=== PATIENT | female | born 1990 | race Caucasian/White ===

== ENCOUNTER 2016-08-09 07:19 | Emergency (ER) | payer SELFPAY ==
[2016-08-09 07:53] VITALS: BP 133/95
--- NOTE | 2016-08-09 08:33 | UC ---
Abdominal Pain Female HPI - HPI Summary HPI Summary: PT WITH KNOWN HEPATITIS C FOLLOWED BY GERARDO COMES IN C/O INTERMITTENT EPISODES OF ABDOMINAL PAIN AND BACK PAIN. PAIN FEELS WORSE IN LUQ. NO FEVER. HAS HAD SOME LOOSE STOOLS AND NAUSEA BUT IS RECOVERING FROM A STOMACH BUG WELL. PT REPORTS WHEN THE PAIN FLARES SHE IS EXCESSIVELY FATIGUED AND IS LOOKING TO BE TREATED FOR HER HEP C AND REQUESTING A REFERRAL TO GI OUTSIDE OF [place]. - History of Current Complaint Chief Complaint: UCBackPain Stated Complaint: ABD/LOWER BACK PAIN Time Seen by Provider: 08/09/16 08:17 Hx Obtained From: Patient Hx Last Menstrual Period: 08/06/16 Onset/Duration: Gradual Onset, Lasting Days, Still Present Timing: Intermittent Episodes Lasting: Severity Initially: Moderate Severity Currently: Moderate Pain Intensity: 7 Pain Scale Used: 0-10 Numeric Location: Discrete At: RUQ, Discrete At: LUQ Radiates: Yes Radiates to: Back Character: Cramping, Sharp Aggravating Factor(s): Nothing Alleviating Factor(s): Nothing Associated Signs and Symptoms: Positive: Back Pain, Nausea. Negative: Fever, Constipation, Blood in Stool, Urinary Symptoms, Vomiting Allergies/Adverse Reactions: Allergies Allergy/AdvReac Type Severity Reaction Status Date / Time No Known Allergies Allergy Verified 11/05/13 13:42 Home Medications: Home Medications NK [No Home Medications Reported] 08/09/16 [History Confirmed 08/09/16] PMH/Surg Hx/FS Hx/Imm Hx - Additional Past Medical History Additional PMH: HEP C (FORMER IV DRUG USER) - Surgical History Surgical History: None - Family History Known Family History: Positive: Diabetes Family History: BREAST CANCER - MOM - Social History Alcohol Use: Rare Substance Use Type: Marijuana Substance Use Comment - Amount & Last Used: 5 days ago Smoking Status (MU): Light Every Day Tobacco Smoker Review of Systems Constitutional: Negative Respiratory: Negative Cardiovascular: Negative Gastrointestinal: Abdominal Pain, Diarrhea, Other - NAUSEA Genitourinary: Negative All Other Systems Reviewed And Are Negative: Yes Physical Exam Triage Information Reviewed: Yes Appearance: Well-Appearing, No Pain Distress, Well-Nourished Vital Signs: Initial Vital Signs Temp 98.6 F 08/09/16 07:44 Pulse 64 08/09/16 07:44 Resp 18 08/09/16 07:44 BP 133/95 08/09/16 07:44 Pulse Ox 100 08/09/16 07:44 Vital Signs Reviewed: Yes Eyes: Positive: Conjunctiva Clear ENT: Positive: Hearing grossly normal Neck: Positive: Supple, Nontender, No Lymphadenopathy Respiratory Exam: Normal Cardiovascular Exam: Normal Abdomen Description: Positive: Soft, Other: - TTP RUQ>LUQ. NO REBOUND, RIGIDITY OR GUARDING. Negative: CVA Tenderness (R), CVA Tenderness (L), Distended, Guarding Musculoskeletal: Positive: No Edema Neurological: Positive: Alert Psychological: Positive: Age Appropriate Behavior Skin: Negative: rashes Abd Pain Female Course/Dx - Course Course Of Treatment: PT SIMPLY LOOKING FOR A GI REFERRAL - Differential Dx/Diagnosis Provider Diagnoses: ABDOMINAL PAIN IN SETTING OF KNOWN HEP C Discharge - Discharge Plan Condition: Stable Disposition: HOME Patient Education Materials: Abdominal Pain (ED) Referrals: [facility],Carlito Matute [Primary Care Provider] - If Needed Antwon Gandhi MD [Medical Doctor] - 1 Week Additional Instructions: CALL GI FOR AN APPT TO EVALUATE YOUR ABDOMINAL PAIN. MAY BE DUE TO MORE THAN JUST HEP C. CONSIDER GASTRITIS, REFLUX...
== END 2016-08-09 08:40 | disposition home or self-care (01) ==
LOC: UCEAST 07:19
DX: R10.11 Right upper quadrant pain (principal); R10.12 Left upper quadrant pain; B19.20 Unspecified viral hepatitis C without hepatic coma; F17.210 Nicotine dependence, cigarettes, uncomplicated
CPT/HCPCS: 99212; G0463

== ENCOUNTER 2019-05-24 03:01 | Emergency (ER) | payer OTHER ==
--- NOTE | 2019-05-24 03:33 | ED ---
Substance Abuse/Use - HPI Summary HPI Summary: Patient is a 28 y/o F presenting to the ED via EMS for a chief complaint of overdose. Patient notes using IV heroin for the first time since being out of a 30 day rehab treatment in March 2019. Patient was administered Narcan nasally by her mother. Currently, patient complains of nausea and dizziness. She states she was clean from heroin use until 05/23/19. Patient believes this relapse is due to depression and recent stress. Patient goes to Narcotics Anonymous meetings, but states she has difficulty going to meetings because they are far from her house. She is due to go to another outpatient rehabilitation facility in 5 days. Patient is 16 weeks and is in her first trimester of . This is her first and she reports no complications. She has an [facility] appointment on 05/29/19. - History Of Current Complaint Chief Complaint: EDOverdose Stated Complaint: OVERDOSE PER EMS Hx Obtained From: Patient Hx Last Menstrual Period: 08/06/16 ?: Yes - 16 weeks Ingestion History: Type/Name Of Drug - Heroin Overdose Characteristics: IV Timing Of Abuse: Binge Use Severity Initially: Severe Severity Currently: Moderate Character: Depressed Aggravating Factor(s): Recent Stress Alleviating Factor(s): Other - Rehab Associated Signs And Symptoms: Nausea, Intentional Ingestion, Other: - Positive dizziness Related Hx: Recent Stressors, Prior Drug Abuse Counseling/Admission - Allergies/Home Medications Allergies/Adverse Reactions: Allergies Allergy/AdvReac Type Severity Reaction Status Date / Time No Known Allergies Allergy Verified 05/24/19 03:16 Home Medications: Home Medications Buspirone HCl 7.5 mg PO BID 05/24/19 [History Confirmed 05/24/19] Pnv No.95/Ferrous Fum/Folic AC [ Vitamin & Minera 28-0.8 mg] 1 tab PO DAILY 05/24/19 [History Confirmed 05/24/19] Sertraline* [Zoloft*] 25 mg PO DAILY 05/24/19 [History Confirmed 05/24/19] PMH/Surg Hx/FS Hx/Imm Hx Previously Healthy: Yes Endocrine/Hematology History: Denies: Hx Diabetes Cardiovascular History: Denies: Hx Hypercholesterolemia, Hx Hypertension Sensory History: Denies: Hx Legally Blind, Hx Deafness Opthamlomology History: Denies: Hx Legally Blind EENT History: Denies: Hx Deafness Psychiatric History: Reports: Hx Inpatient Treatment, Hx Community Mental Health Tx, Hx Substance Abuse - Heroin - Surgical History Surgical History: None Surgery Procedure, Year, and Place: None Infectious Disease History: Yes Infectious Disease History: Reports: History Other Infectious Disease - Hep C Denies: Traveled Outside the [place] in Last 30 Days - Family History Known Family History: Positive: Diabetes, Other - Breast cancer Family History: BREAST CANCER - MOM - Social History Occupation: Unemployed Lives: With Family Alcohol Use: Rare Hx Substance Use: Yes Substance Use Type: Reports: Heroin Substance Use Comment - Amount & Last Used: Last on 05/23/19 Hx Tobacco Use: Yes Smoking Status (MU): Light Every Day Tobacco Smoker Review of Systems Positive: Nausea Neurological: Other - Positive dizziness All Other Systems Reviewed And Are Negative: Yes Physical Exam - Summary Physical Exam Summary: Appearance: Well-appearing, Well-nourished, lying in bed comfortably Skin: Warm, dry, no obvious rash Eyes: sclera anicteric, no conjunctival pallor ENT: mucous membranes moist, pharynx appears normal Neck: Supple, nontender Respiratory: Clear to auscultation, no signs of respiratory distress Cardiovascular: Normal S1, S2. No murmurs. Normal distal pulses in tibial and radial bilaterally. Abdomen: Soft, nontender, normal active bowel sounds present Musculoskeletal: Normal, Strength/ROM Intact Neurological: A&Ox3, awake and alert, mentation is normal, speech is fluent and appropriate Psychiatric: affect is normal, does not appear anxious or depressed Triage Information Reviewed: Yes Vital Signs On Initial Exam: Initial Vitals Temp Pulse Resp BP Pulse Ox 98.1 F 73 17 108/73 96 05/24/19 03:07 05/24/19 03:07 05/24/19 03:07 05/24/19 03:07 05/24/19 03:07 Vital Signs Reviewed: Yes Procedures - Sedation Patient Received Moderate/Deep Sedation with Procedure: No Diagnostics - Vital Signs Vital Signs Temp Pulse Resp BP Pulse Ox 05/24/19 03:07 98.1 F 73 17 108/73 96 - Laboratory Lab Statement: Any lab studies that have been ordered have been reviewed, and results considered in the medical decision making process. Course/Dx - Course Course Of Treatment: Patient is a 28 y/o F presenting to the ED via EMS for a chief complaint of overdose. Patient notes using IV heroin for the first time since being out of a 30 day rehab treatment in March 2019. Patient was administered Narcan nasally by her mother. Currently, patient complains of nausea and dizziness. She states she was clean from heroin use until 05/23/19. Patient believes this relapse is due to depression and recent stress. Patient goes to Narcotics Anonymous meetings, but states she has difficulty going to meetings because they are far from her house. She is due to go to another outpatient rehabilitation facility in 5 days. Patient is 16 weeks and is in her first trimester of . This is her first and she reports no complications. She has an [facility] appointment on 05/29/19. On exam, unremarkable findings. Patient will be discharged with a diagnosis of opioid overdose. Follow up with PCP as needed. - Diagnoses Provider Diagnoses: Opioid overdose Discharge ED - Sign-Out/Discharge Documenting (check all that apply): Patient Departure - Discharge - Discharge Plan Condition: Good Disposition: HOME Patient Education Materials: Opioid Safety (ED), Opioid Use Disorder (ED) Referrals: [facility],Carlito Matute [Primary Care Provider] - - Billing Disposition and Condition Condition: GOOD Disposition: Home - Attestation Statements Document Initiated by Giovannyibleigh: Yes Documenting Scribe: Claire Medley Provider For Whom Audrey is Documenting (Include Credential): Joshua Hopson MD Scribe Attestation: Claire Woodson scribed for Joshua Hopson MD on 05/24/19 at 0520. Scribe Documentation Reviewed: Yes Provider Attestation: The documentation as recorded by the Claire serna accurately reflects the service I personally performed and the decisions made by , Joshua Hopson MD Status of Scribe Document: Viewed
[2019-05-24 05:03] VITALS: BP 102/61
== END 2019-05-24 05:02 | disposition home or self-care (01) ==
LOC: ED 03:01
DX: O26.892 Other specified pregnancy related conditions, second trimester (principal); T40.1X1A Poisoning by heroin, accidental (unintentional), initial encounter; O99.332 Smoking (tobacco) complicating pregnancy, second trimester; F17.200 Nicotine dependence, unspecified, uncomplicated; Z3A.16 16 weeks gestation of pregnancy; Y92.009 Unspecified place in unspecified non-institutional (private) residence as the place of occurrence of the external cause; Z79.899 Other long term (current) drug therapy
CPT/HCPCS: 99282